=== PATIENT | female | born 1945 | race Caucasian/White ===

== ENCOUNTER 2017-12-25 15:13 | Emergency (ER) | payer OTHER ==
[2017-12-25] MEDS: MORPHINE 2 MG/ML 1ML SYRINGE (J2270) IV (15:59)
[2017-12-25] MEDS: ONDANSETRON 4MG/2ML VIAL (J2405) IV (16:43)
[2017-12-25] MEDS: LIDOCAINE 1% MDV 20ML VIAL IM (17:51)
== END 2017-12-25 19:29 | disposition home or self-care (01) ==
LOC: M ED 15:13
DX: S52.502A Unspecified fracture of the lower end of left radius, initial encounter for closed fracture (principal); S63.002A Unspecified subluxation of left wrist and hand, initial encounter; S50.812A Abrasion of left forearm, initial encounter; W01.0XXA Fall on same level from slipping, tripping and stumbling without subsequent striking against object, initial encounter; Y92.018 Other place in single-family (private) house as the place of occurrence of the external cause; I10 Essential (primary) hypertension; G43.909 Migraine, unspecified, not intractable, without status migrainosus
CPT/HCPCS: J2405

== ENCOUNTER 2017-12-27 13:54 | Day surgery (SDC) | payer OTHER ==
[2017-12-27] MEDS ORDERED: ceFAZolin 2 GM/D5W 50 ML IV BAG (J0690 PER 500MG) As Ordered ×2 (14:57)
[2017-12-27] MEDS: LIDOCAINE 1% MDV 20ML VIAL As Ordered ×2 (18:00)
[2017-12-27] MEDS ORDERED: fentaNYL 100 MCG/2 ML INJECTION (J3010) As Ordered ×2 (18:24)
[2017-12-27] MEDS ORDERED: HYDROmorphone HCL 2 MG/ML 1ML VIAL (J1170) As Ordered ×2 (18:24)
[2017-12-27] MEDS ORDERED: ePHEDrine SULFATE 25 MG/5 ML(5MG/ML) SYRINGE As Ordered ×2 (18:24)
[2017-12-27] MEDS ORDERED: PROPOFOL 200 MG/20 ML VIAL As Ordered ×2 (18:24)
[2017-12-27] MEDS ORDERED: dexameTHASONE 4 MG/ML 1ML VIAL (J1100) As Ordered ×2 (18:24)
[2017-12-27] MEDS ORDERED: MIDAZOLAM INJ 2 MG/2 ML VIAL (J2250) As Ordered ×2 (18:24)
[2017-12-27] MEDS ORDERED: LIDOCAINE 2% INJ 100 MG/5 ML SDV (FOR ANES.) As Ordered ×2 (18:24)
[2017-12-27] MEDS ORDERED: PERCOCET 5MG/325MG TAB As Ordered ×2 (18:41)
[2017-12-27] MEDS: PERCOCET 5MG/325MG TAB PO ×4 (18:46→19:18)
[2017-12-27] MEDS ORDERED: METOCLOPRAMIDE INJ 10MG/2ML VIAL (J2765) As Ordered ×2 (18:48)
[2017-12-27] MEDS: METOCLOPRAMIDE INJ 10MG/2ML VIAL (J2765) IV ×2 (18:50)
[2017-12-27] MEDS ORDERED: HYDROMORPHONE HCL 0.5 MG/ 0.5 ML SYRINGE (J1170 PER 1) IV ×2 (19:00)
[2017-12-27] MEDS: LR 1,000 ML IV ×2 (19:00)
[2017-12-27] MEDS ORDERED: fentaNYL 100 MCG/2 ML INJECTION (J3010) IV ×2 (19:00)
[2017-12-27] MEDS: ONDANSETRON 4MG/2ML VIAL (J2405) IV ×2 (19:25)
[2017-12-27] MEDS ORDERED: ONDANSETRON 4MG/2ML VIAL (J2405) As Ordered ×2 (19:36)
[2017-12-27] MEDS ORDERED: PERCOCET 5MG/325MG TAB PO ×2 (21:30)
[2017-12-27] MEDS: NS 1,000 ML IV ×2 (21:35)
[2017-12-28] MEDS: ONDANSETRON 4MG/2ML VIAL (J2405) IV ×2 (06:58)
[2017-12-28] MEDS ORDERED: ONDANSETRON 4MG/2ML VIAL (J2405) IV ×2 (07:00)
[2017-12-28 08:19] LABS: BASO % 0.2 % (0.0-1.0); EOS % 0.1 % (0.0-3.0); HEMATOCRIT 37.6 % (36.0-47.0); HEMOGLOBIN 12.4 g/dl (12.0-15.5); IMMATURE GRANULOCYTE % 0.4 % (0-3.0); LYMPH # 1.3 10^3/uL (1.5-4.5); LYMPH % 13.7 % (24.0-44.0); MEAN CORPUSCULAR HEMOGLOBIN 29.8 pg (27.0-33.0); MEAN CORPUSCULAR VOLUME 90.4 fl (80.0-96.0); MONO # 0.3 10^3/uL (0.0-0.8); MONO % 2.8 % (0.0-5.0); NEUTROPHILS # 7.7 10^3/uL (1.8-7.7); NEUTROPHILS % 82.8 % (36.0-66.0); PLATELET COUNT, AUTOMATED 248 10^3/uL (150-450); RED BLOOD COUNT 4.16 10^6/uL (4.00-5.40); RED CELL DISTRIBUTION WIDTH 12.5 % (11.5-14.5); WHITE BLOOD COUNT 9.3 10^3/uL (4.0-10.0)
[2017-12-28] MEDS: NS 1,000 ML IV ×2 (08:41)
[2017-12-28 08:43] LABS: LACTIC ACID SEPSIS PROTOCOL 1.7 MMOL/L (0.4-2.0)
[2017-12-28 08:45] LABS: ALBUMIN 3.3 GM/DL (3.2-5.2); ALBUMIN/GLOBULIN RATIO 0.83 (1.00-1.93); ALKALINE PHOSPHATASE 76 U/L (45-117); ALT/SGPT 22 U/L (12-78); ANION GAP 11 MEQ/L (8-16); AST/SGOT 18 U/L (7-37); BILIRUBIN,TOTAL 0.5 MG/DL (0.2-1.0); BLOOD UREA NITROGEN 13 MG/DL (7-18); CALCIUM LEVEL 8.5 MG/DL (8.8-10.2); CARBON DIOXIDE LEVEL 23 MEQ/L (21-32); CHLORIDE LEVEL 106 MEQ/L (98-107); CPK CREATINE PHOSPHOKINASE 83 U/L (26-192); CREATININE FOR GFR 0.92 MG/DL (0.55-1.30); GLOMERULAR FILTRATION RATE > 60.0 (>39); GLUCOSE, FASTING 109 MG/DL (70-100); MB/CK RELATIVE INDEX 1.81 (< OR =4); NT-PRO BNP 153 PG/ML (<125); SODIUM LEVEL 140 MEQ/L (136-145); TOTAL PROTEIN 7.3 GM/DL (6.4-8.2); TROPONIN I 0.02 NG/ML (< 0.10)
[2017-12-28] MEDS ORDERED: ISOVUE-370 76% 100ML VIAL (Q9967) As Ordered ×2 (08:58)
[2017-12-28] MEDS ORDERED: ALBUTEROL 90 MCG/ACT 8GM HFA INHALER INH ×2 (11:00)
[2017-12-28] MEDS: ALBUTEROL 90 MCG/ACT 8GM HFA INHALER INH ×2 (11:21)
== END 2017-12-28 12:15 | disposition home or self-care (01) ==
LOC: M SDC 13:54 → M MSPAV 21:04
DX: S52.512A Displaced fracture of left radial styloid process, initial encounter for closed fracture (principal); I10 Essential (primary) hypertension; G43.909 Migraine, unspecified, not intractable, without status migrainosus; Z88.2 Allergy status to sulfonamides; Z88.5 Allergy status to narcotic agent; W01.0XXA Fall on same level from slipping, tripping and stumbling without subsequent striking against object, initial encounter; Y92.007 Garden or yard of unspecified non-institutional (private) residence as the place of occurrence of the external cause; Y93.89 Activity, other specified; Y99.8 Other external cause status
CPT/HCPCS: 25606